=== PATIENT | male | born 2005 | race African-American/Black ===

== ENCOUNTER 2024-07-31 08:54 | Emergency (ER) | payer OTHER, MEDICAID ==
[~2024-07-31] VITALS: Ht 185.4 cm; Wt 90.7 kg
[2024-07-31] MEDS ORDERED: FAMOTIDINE 50 ML IV ONE (09:15)
[2024-07-31] MEDS ORDERED: Ondansetron Hydrochloride 4 MG/2 ML VIAL IV ONE (09:15)
[2024-07-31] MEDS ORDERED: SODIUM CHLORIDE 0.9% 1,000 ML IV ONE (09:15)
[2024-07-31] MEDS ORDERED: PEPCID40 MG PO (09:23)
[2024-07-31] MEDS ORDERED: Ondansetron4 MG PO (09:23)
[2024-07-31 09:29] LABS: BASO % 0.3 % (0.0-1.0); EOS % 0.4 % (1.0-4.0); HEMATOCRIT 47.5 % (42.0-52.0); MEAN CELL VOLUME 98.1 fl (80.0-94.0); MEAN CORPUSCULAR HGB 33.9 pg (27.0-31.0); MEAN CORPUSCULAR HGB CONC 34.5 g/dl (33.0-37.0); MEAN PLATELET VOLUME 11.2 fl (9.6-12.3); MONO # 0.6 10*3/uL (0.1-1.0); MONO % 8.1 % (3.0-9.0); NEUT # 4.3 10*3/uL (2.3-7.9); NEUT % 59.6 % (47.0-73.0); PLATELET COUNT AUTOMATED 213 10*3/uL (130-400); RED BLOOD COUNT 4.84 10*6/uL (4.50-5.90); WHITE BLOOD COUNT 7.1 10*3/uL (4.8-10.8)
[2024-07-31 09:54] LABS: ALKALINE PHOSPHATASE 89 U/L (46-116); BUN 14 mg/dl (9-23); CHLORIDE 104 mmol/L (98-107); ETHYL ALCOHOL 11.1 mg/dl (<3); LIPASE 36 U/L (12-53); POTASSIUM 4.1 mmol/L (3.4-5.1); SGPT/ALT 47 U/L (5-49); TOTAL PROTEIN 7.3 gm/dL (6.0-8.0)
== END 2024-07-31 10:35 | disposition home or self-care (01) ==
LOC: ED 08:54
PROVIDERS: Emergency Medicine
DX: R11.2 Nausea with vomiting, unspecified (principal); F12.10 Cannabis abuse, uncomplicated; E86.0 Dehydration; Z79.899 Other long term (current) drug therapy

== ENCOUNTER 2024-10-16 14:58 | Emergency (ER) | payer OTHER, MEDICAID ==
[~2024-10-16] VITALS: Wt 96.2 kg
[~2024-10-16 14:58] MED LIST: Ondansetron4 MG PO; PEPCID40 MG PO
== END 2024-10-16 20:46 | disposition left against medical advice (07) ==
LOC: ED 14:58
DX: R10.30 Lower abdominal pain, unspecified (principal); K59.00 Constipation, unspecified; R19.7 Diarrhea, unspecified; Z53.21 Procedure and treatment not carried out due to patient leaving prior to being seen by health care provider